=== PATIENT | male | born 1975 | race Two or more races ===

== ENCOUNTER 2018-08-07 02:05 | Emergency (ER) | payer MEDICAID, OTHER ==
[~2018-08-07] VITALS: Ht 170.2 cm; Wt 95.3 kg
--- NOTE | 2018-08-07 02:10 | NUR ---
PT [id number] FROM [address] C/O PALPITATIONS X 6 HOURS S/P USING METH. DENIES SOB. PT AOX3. NAD NOTED. RESP EVEN AND UNLABORED. PT ON MONITOR IN 13. WILL CONTINUE TO MONITOR.
--- NOTE | 2018-08-07 02:21 | NUR ---
BLOOD DRAWN AND GIVEN TO LAB
--- NOTE | 2018-08-07 02:25 | NUR ---
TECH AT BEDSIDE FOR EKG
[2018-08-07] MEDS ORDERED: IV NS 0.9% 1,000 ML BAG IV ONE (02:30)
[2018-08-07] MEDS ORDERED: LORAZEPAM INJ 2 MG/ML VIAL IV ONE (02:30)
[2018-08-07 02:31] LABS: BASOPHILS % (AUTO) 0.6 % (0.0-2.0); EOSINOPHILS % (AUTO) 0.1 % (0.0-6.0); HEMATOCRIT 38 % (39-51); HEMOGLOBIN 12.9 g/dL (13.5-17.5); LYMPHOCYTES # (AUTO) 1.1 /CMM (0.8-4.8); LYMPHOCYTES % (AUTO) 14.7 % (20.0-44.0); MEAN CORPUSCULAR HGB CONC 34 g/dl (31.0-36.0); MEAN CORPUSCULAR VOLUME 90 fL (80-96); MONOCYTES # (AUTO) 0.7 /CMM (0.1-1.30); MONOCYTES % (AUTO) 9.7 % (2.0-12.0); NEUTROPHILS # (AUTO) 5.6 /CMM (1.8-8.9); NEUTROPHILS % (AUTO) 74.9 % (43.0-81.0); PLATELET COUNT (AUTO) 214 /CMM (150-450); RED BLOOD CELL COUNT(AUTO) 4.16 MIL/uL (4.5-6.0); WHITE BLOOD COUNT (AUTO) 7.4 K/uL (4.3-11.0)
[2018-08-07] MEDS ORDERED: LORAZEPAM INJ 2 MG/ML VIAL ONE (02:47)
[2018-08-07 02:51] LABS: ALBUMIN 3.8 g/dL (3.4-5.0); BILIRUBIN,DIRECT 0.1 mg/dL (0.0-0.2); BILIRUBIN,TOTAL 0.4 mg/dL (0.2-1.0); CALCIUM, SERUM 8.7 mg/dL (8.5-10.1); POTASSIUM 3.5 mmol/L (3.5-5.1); SALICYLATE 3.2 mg/dL (2.8-20.0); TOTAL PROTEIN, SERUM 7.4 g/dL (6.4-8.2)
--- NOTE | 2018-08-07 03:48 | NUR ---
Patient is resting comfortably in bed with eyes closed. Easily aroused. VSS.
--- NOTE | 2018-08-07 08:00 | NUR ---
pt is ambulatory w/ steady gait. was provided w/ breakfast tray. d/c home in stable condition.
[2018-08-07 08:03] VITALS: BP 128/77
--- NOTE | 2018-08-07 11:39 | NUR ---
Social service consult requested by discharged pt. Pt. initially visited the ER in the morning for palpitations and has been discharged. NEW was notified that pt. was in the ER waiting room requesting a consult at 8:30am. NEW met with former pt. in the ER waiting room. Former pt. looked disheveled and appeared to be under the influence of drugs or alcohol. Former pt. did not engage with SW. NEW offered to call [facility] for emergency residential [address] [place] [id number] , during intake hours (10:00am) to see if they have beds available. Pt. continued to not engage with SW. NEW provided former pt. with the following homeless residential referrals: [facility] [address] [place] [id number] , [facility] [address] [place] [address] . And the [facility]. Pt. may require a TAP card. No other services needed at this time. SW is available if needed.
== END 2018-08-07 08:04 | disposition home or self-care (01) ==
LOC: ER 02:07
DX: F19.10 Other psychoactive substance abuse, uncomplicated (principal); R41.82 Altered mental status, unspecified; F32.9 Major depressive disorder, single episode, unspecified; I10 Essential (primary) hypertension; R01.1 Cardiac murmur, unspecified; J45.909 Unspecified asthma, uncomplicated; Z59.0 Homelessness
CPT/HCPCS: 36415; 70450; 71045; 80048; 80076; 80307; 80329; 82550; 82962; 83735; 85025; 93005; 96361; 96374; 99284; G0480; J2060; J7030

== ENCOUNTER 2018-08-07 12:45 | Emergency (ER) | payer MEDICAID ==
[~2018-08-07] VITALS: Ht 170.2 cm; Wt 95.3 kg
--- NOTE | 2018-08-07 13:02 | NUR ---
pt [facility]ra from the streets to ed bed 09. per report, noted to be intoxicated. pt was discharged from ed this am after sobering up at ed last night. pt states "i feel worst." placed on monitor. vss. awaiting md oseguera.
--- NOTE | 2018-08-07 15:28 | NUR ---
pt sleeping. easily arousable. on monitor. vss.
[2018-08-07 17:35] VITALS: BP 132/88
--- NOTE | 2018-08-07 17:45 | NUR ---
CALLED DIETARY FOR MEAL
--- NOTE | 2018-08-07 18:05 | NUR ---
PT IS AWAKE. REQUESTING FOR SOMETHING TO EAT. PROVIDED W/ MEAL TRAY.
--- NOTE | 2018-08-07 18:26 | NUR ---
PT LEFT ED AFTER EATING WITHOUT DISCHARGE INSTRUCTIONS.
== END 2018-08-07 18:29 | disposition left against medical advice (07) ==
LOC: ER 12:48
DX: F19.10 Other psychoactive substance abuse, uncomplicated (principal); F10.129 Alcohol abuse with intoxication, unspecified; I10 Essential (primary) hypertension; R01.1 Cardiac murmur, unspecified; J45.909 Unspecified asthma, uncomplicated; Y90.9 Presence of alcohol in blood, level not specified; Z59.0 Homelessness